=== PATIENT | female | born 1970 | race Caucasian/White ===

== ENCOUNTER 2016-09-13 15:27 | Emergency (ER) | payer BC ==
[~2016-09-13] VITALS: Ht 170.2 cm; Wt 120.2 kg
[~2016-09-13 15:27] MED LIST: HYDR1TAB PO
[2016-09-13] MEDS ORDERED: TRIA1TAB3 (15:49)
[2016-09-13] MEDS ORDERED: fentaNYL INJECTION 100 MCG/2 ML AMP IVP STA (16:03)
[2016-09-13] MEDS ORDERED: NS IV 1000 ML 1,000 ML IV ONE (16:03)
--- NOTE | 2016-09-13 16:03 | ED Abdominal Pain ---
General Chief Complaint: Abdominal/GI Problems Stated Complaint: SEVERE STOMACH PAIN Nursing Triage Note: WOKE UP THIS AM WITH MIDLINE ABD PAIN. Sepsis Screen: No Definite Risk Source of Information: Patient Exam Limitations: No Limitations History of Present Illness Time Seen By Provider: 15:56 Initial Comments Patient presents to ER by private conveyance with chief complaint of epigastric abdominal pain that does not radiate anywhere and started this morning when she woke up. His producing you nausea without any vomiting. She has loose stools but she is chronically having loose stools ever since her gallbladder was taken out years ago. She is not seeing any blood or black tarry stools and they are not watery. She has a history of kidney stones and has seen Dr. Kaufman in the past. She says does not feel like her kidney stones. She is not aware whether or not she has diverticulosis and has never had a colonoscopy. She also has had a vertical as well as her gallbladder surgery on her abdomen. She is not having any fevers chills sweats or rash. Allergies and Home Medications Allergies Coded Allergies: No Known Drug Allergies (Unverified , 06/19/11) Home Medications Omeprazole 40 Mg Capsule.dr, 40 MG PO HS for 7 Days, #7 Ref 0 Prescribed by: NAEEM ESCOBAR on 09/13/168 Ondansetron 4 Mg Tab.rapdis, 4 MG PO Q6H PRN for NAUSEA/VOMITING-1ST LINE, #14 Ref 0 Prescribed by: NAEEM ESCOBAR on 09/13/168 Triamterene/Hydrochlorothiazid 1 Each Tablet, #30 (Reported) Review of Systems Constitutional: see HPI, No chills, No fever, malaise, No weakness Respiratory: Denies Cough, Denies Shortness of Air Cardiovascular: Denies Chest Pain, Denies Edema Gastrointestinal: See HPI, Abdominal Pain, Denies Constipated (loose stools), Diarrhea, Nausea Genitourinary: Denies Burning, Denies Discharge Musculoskeletal: No back pain, No joint pain Skin: No pruritus, No rash Psychiatric/Neurological: Denies Headache, Denies Numbness Past Ekqdxgh-Oygoxd-Iulgqw Hx Patient Social History Alcohol Use: Denies Use Recreational Drug Use: No Smoking Status: Former Smoker Recent Foreign Travel: No Contact w/Someone Who Travel: No Recent Infectious Disease Expo: No Surgeries Surgeries: Gallbladder Respiratory Hx Respiratory Disorders: No Cardiovascular Hx Cardiac Disorders: No Neurological Hx Neurological Disorders: No Reproductive System Hx Reproductive Disorders: No Sexually Transmitted Disease: No Genitourinary Hx Genitourinary Disorders: Yes (KIDNEY STONES) Genitourinary Disorders: Kidney Stones Gastrointestinal Hx Gastrointestinal Disorders: No Musculoskeletal Hx Musculoskeletal Disorders: No Endocrine Hx Endocrine Disorders: No HEENT HX ENT Disorders: No Blood Transfusions Hx Blood Disorders: No Physical Exam Vital Signs VS - Last 72 Hours, by Label 09/13/16 09/13/16 15:33 18:36 Temp 98.0 Pulse 88 76 Resp 16 16 B/P (MAP) 148/82 Pulse Ox 98 Capillary Refill : Less Than 3 Seconds General Appearance: WD/WN, mild distress HEENT: PERRL/EOMI, pharynx normal Respiratory: lungs clear, normal breath sounds Cardiovascular: normal peripheral pulses, regular rate, rhythm, no edema Peripheral Pulses: 3+ Dorsalis Pedis (R), 3+ Left Dors-Pedis (L), 3+ Radial Pulses (R), 3+ Radial Pulses (L) Gastrointestinal: non tender, soft Extremities: non-tender, no pedal edema, no calf tenderness, normal capillary refill Back: normal inspection, no CVA tenderness Neurologic/Psychiatric: alert, normal mood/affect, oriented x 3 Skin: normal color, warm/dry Lymphatic: no adenopathy Focused Exam Lactic Acid Level Laboratory Tests Test 09/13/16 17:23 Lactic Acid Level 1.36 MMOL/L (0.50-2.00) Progress/Results/Core Measures Results/Orders Lab Results Laboratory Tests Test 09/13/16 15:33 09/13/16 16:40 09/13/16 17:23 Range/Units Urine Color YELLOW Urine Clarity CLEAR Urine pH 8 5-9 Urine Specific Ten Sleep 1.015 L 1.016-1.022 Urine Protein NEGATIVE NEGATIVE Urine Glucose (UA) NEGATIVE NEGATIVE Urine Ketones NEGATIVE NEGATIVE Urine Nitrite NEGATIVE NEGATIVE Urine Bilirubin NEGATIVE NEGATIVE Urine Urobilinogen NORMAL NORMAL MG/DL Urine Leukocyte Esterase NEGATIVE NEGATIVE Urine RBC (Auto) 3+ H NEGATIVE Urine RBC NONE /HPF Urine WBC 0-2 /HPF Urine Squamous Epithelial Cells 2-5 /HPF Urine Crystals NONE /LPF Urine Bacteria TRACE /HPF Urine Casts NONE /LPF Urine Mucus NEGATIVE /LPF Urine Culture Indicated NO Urine Test NEGATIVE NEGATIVE White Blood Count 14.7 H 4.3-11.0 10^3/uL Red Blood Count 5.19 4.35-5.85 10^6/uL Hemoglobin 14.7 11.5-16.0 G/DL Hematocrit 44 35-52 % Mean Corpuscular Volume 85 80-99 FL Mean Corpuscular Hemoglobin 28 25-34 PG Mean Corpuscular Hemoglobin Concent 33 32-36 G/DL Red Cell Distribution Width 13.9 10.0-14.5 % Platelet Count 325 130-400 10^3/uL Mean Platelet Volume 10.6 H 7.4-10.4 FL Neutrophils (%) (Auto) 81 H 42-75 % Lymphocytes (%) (Auto) 12 12-44 % Monocytes (%) (Auto) 6 0-12 % Eosinophils (%) (Auto) 2 0-10 % Basophils (%) (Auto) 0 0-10 % Neutrophils # (Auto) 11.9 H 1.8-7.8 X 10^3 Lymphocytes # (Auto) 1.7 1.0-4.0 X 10^3 Monocytes # (Auto) 0.8 0.0-1.0 X 10^3 Eosinophils # (Auto) 0.3 0.0-0.3 10^3/uL Basophils # (Auto) 0.1 0.0-0.1 10^3/uL Neutrophils % (Manual) 79 % Lymphocytes % (Manual) 16 % Monocytes % (Manual) 5 % Blood Morphology Comment NORMAL Sodium Level 140 135-145 MMOL/L Potassium Level 4.2 3.6-5.0 MMOL/L Chloride Level 103 98-107 MMOL/L Carbon Dioxide Level 23 21-32 MMOL/L Anion Gap 14 5-14 MMOL/L Blood Urea Nitrogen 13 7-18 MG/DL Creatinine 0.66 0.60-1.30 MG/DL Estimat Glomerular Filtration Rate > 60 BUN/Creatinine Ratio 20 Glucose Level 99 70-105 MG/DL Calcium Level 9.6 8.5-10.1 MG/DL Magnesium Level 2.3 1.8-2.4 MG/DL Total Bilirubin 0.5 0.1-1.0 MG/DL Aspartate Amino Transf (AST/SGOT) 16 5-34 U/L Alanine Aminotransferase (ALT/SGPT) 21 0-55 U/L Alkaline Phosphatase 103 40-136 U/L Troponin I < 0.30 <0.30 NG/ML Total Protein 7.6 6.4-8.2 GM/DL Albumin 4.1 3.2-4.5 GM/DL Lipase 15 8-78 U/L Lactic Acid Level 1.36 0.50-2.00 MMOL/L My Orders Orders - NAEEM ESCOBAR Ct Abdomen/Pelvis W (09/13/16 16:03) Cbc With Automated Diff (09/13/16 16:03) Comprehensive Metabolic Panel (09/13/16 16:03) Hcg,Qualitative Urine (09/13/16 16:03) Lactic Acid Analyzer (09/13/16 16:03) Lipase (09/13/16 16:03) Magnesium (09/13/16 16:03) Troponin I (09/13/16 16:03) Ua Culture If Indicated (09/13/16 16:03) Fentanyl Injection (Sublimaze Injection (09/13/16 16:03) Saline Lock/Iv-Start (09/13/16 16:03) Ns Iv 1000 Ml (Sodium Chloride 0.9%) (09/13/16 16:03) Ondansetron Injection (Zofran Injectio (09/13/16 16:15) Iohexol Injection (Omnipaque 350 Mg/Ml 1 (09/13/16 16:15) Ns (Ivpb) (Sodium Chloride 0.9% Ivpb Bag (09/13/16 16:15) Manual Differential (09/13/16 16:40) Famotidine Tablet (Pepcid Tablet) (09/13/16 18:15) Rx-Ondansetron Po (Rx-Zofran Po) (09/13/16 18:13) Medications Given in ED Current Medications Medications Dose Ordered Sig/Alaina Route Start Time Stop Time Status Last Admin Dose Admin Iohexol 100 ml ONCE ONCE IV 09/13/16 16:15 09/13/16 16:16 DC 09/13/16 16:50 100 ML Ondansetron HCl 4 mg ONCE ONCE IVP 09/13/16 16:15 09/13/16 16:16 DC 09/13/16 16:39 4 MG Sodium Chloride 100 ml ONCE ONCE IV 09/13/16 16:15 09/13/16 16:16 DC 09/13/16 16:50 80 ML Sodium Chloride 1,000 ml @ 0 mls/hr Q0M ONCE IV 09/13/16 16:03 09/13/16 16:07 DC 09/13/16 16:39 1,000 MLS/HR Vital Signs/I&O Vital Sign - Last 12Hours 09/13/16 09/13/16 15:33 18:36 Temp 98.0 Pulse 88 76 Resp 16 16 B/P (MAP) 148/82 Pulse Ox 98 Blood Pressure Mean: 104 Point of Care Testing Urine -Bedside: Negative Diagnostic Imaging Diagonstic Imaging: CT Plain Films/CT/US/NM/MRI: abdomen (abdomen pelvis with contrast) Comments [facility] [place], [place] NAME: GLORIA BANDA [facility] REC#: [id number] PT STATUS: REG ER : 1970 PHYSICIAN: NAEEM ESCOBAR MD ADMIT DATE: 09/13/16/ER Draft Date of Exam:09/13/16 CT ABDOMEN/PELVIS W INDICATION: Abdominal pain. EXAMINATION: CT of the abdomen and pelvis was obtained with IV contrast bolus. COMPARISON: 06/30/11. FINDINGS: Visualized portions of the lung bases are clear. There are no pleural fluid collections. There is no free intraperitoneal air. The liver shows no focal lesions. Patient has had prior cholecystectomy. The spleen, adrenals and pancreas are normal in appearance. The right kidney shows a cyst in the midpole but no hydronephrosis or mass. The left kidney shows a mixed density lesion containing fat in the midpole, compatible with angiomyolipoma. This measures about 3.6 cm, slightly larger compared to the prior study. There is no retroperitoneal mass or adenopathy. There is no ascites or abnormal fluid collection. Visualized bowel loops are unremarkable. There is a ventral hernia in the midline containing fat. IMPRESSION: Status post cholecystectomy. Benign-appearing cyst in the right kidney. 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 There is a nonocclusive stone in the right kidney. There is a ventral hernia in the midline containing fat. There is no sign of bowel obstruction or bowel wall thickening. Dictated on workstation # [id number] Dict: 09/13/16 1703 Trans: 09/13/16 1724 [facility] [id number] Interpreted by: FADI PHILIPPE MD Electronically signed by: Reviewed: Reviewed by Me Departure Impression Impression: Primary Impression: Nausea and vomiting Qualified Codes: R11.2 - Nausea with vomiting, unspecified Additional Impressions: Abdominal wall pain Gastroenteritis Disposition: 01 HOME, SELF-CARE Condition: Improved Departure-Patient Inst. Decision time for Depature: 18:15 Referrals: HELENE ARELLANO DO (PCP) Primary Care Physician Patient Instructions: Gastritis (DC) Add. Discharge Instructions: Please start with an all liquid diet tonight and if have any nausea take Zofran every 6 hours as needed and allow it to dissolve under your tongue. After you have nausea you should wait at least 3-4 hours before attempting to eat anything again. Make sure drinking plenty of fluids as this is more important and eating. Start with a liquid diet and advance yourself as tolerated to a more substantial diet. Avoid things that are greasy or spicy in nature. Take the omeprazole, one tablet at night as needed for the next week to help with your symptoms. If you're having pain you can take Tylenol or Advil as needed. If your symptoms are going for more than 5 days you should consider following up with your primary care physician. If you have new or worsening symptoms such as fever or intractable nausea and vomiting then you should return to the ER. All discharge instructions reviewed with patient and/or family. Voiced understanding. Scripts Ondansetron (Zofran Odt) 4 Mg Tab.rapdis 4 MG PO Q6H Y for NAUSEA/VOMITING-1ST LINE, #14 TAB 0 Refills Prov: NAEEM ESCOBAR 09/13/16 Omeprazole (Omeprazole) 40 Mg Capsule. 40 MG PO HS for 7 Days, #7 CAP 0 Refills Prov: NAEEM ESCOBAR 09/13/16 Copy Copies To 1: HELENE ARELLANO TITUS J Sep 13, 2016 16:03
[2016-09-13 16:11] LABS: BILIRUBIN,URINE NEGATIVE (NEGATIVE); KETONES,URINE NEGATIVE (NEGATIVE); LEUKOCYTE ESTERASE ,URINE NEGATIVE (NEGATIVE); NITRITE,URINE NEGATIVE (NEGATIVE); PH,URINE 8 (5-9); PROTEIN,URINE NEGATIVE (NEGATIVE); UROBILINOGEN,URINE NORMAL (NORMAL)
[2016-09-13] MEDS ORDERED: ONDANSETRON 4 MG/2 ML (SDV) Z0FRAN IVP ONE (16:15)
[2016-09-13] MEDS ORDERED: NS 100 ML (IVPB) BAG IV ONE (16:15)
[2016-09-13] MEDS ORDERED: IOHEXOL 350 MG/ML 100 ML (OMNIPAQUE 350) VIAL IV ONE (16:15)
[2016-09-13 16:19] LABS: WBC,URINE 0-2 /HPF
[2016-09-13 16:49] LABS: BASOPHILS # (AUTO) 0.1 10^3/uL (0.0-0.1); BASOPHILS % (AUTO) 0 % (0-10); EOSINOPHILS # (AUTO) 0.3 10^3/uL (0.0-0.3); EOSINOPHILS % (AUTO) 2 % (0-10); LYMPHOCYTES # (AUTO) 1.7 X 10^3 (1.0-4.0); LYMPHOCYTES % (AUTO) 12 % (12-44); MEAN CORPUSCULAR HEMOGLOBIN 28 PG (25-34); MEAN CORPUSCULAR HGB CONC 33 G/DL (32-36); MEAN CORPUSCULAR VOLUME 85 FL (80-99); MEAN PLATELET VOLUME 10.6 FL (7.4-10.4); MONOCYTES # (AUTO) 0.8 X 10^3 (0.0-1.0); MONOCYTES % (AUTO) 6 % (0-12); NEUTROPHILS # (AUTO) 11.9 X 10^3 (1.8-7.8); NEUTROPHILS % (AUTO) 81 % (42-75); PLATELET COUNT 325 10^3/uL (130-400); RED BLOOD COUNT 5.19 10^6/uL (4.35-5.85); RED CELL DISTRIBUTION WIDTH 13.9 % (10.0-14.5); WHITE BLOOD COUNT 14.7 10^3/uL (4.3-11.0)
[2016-09-13 17:08] LABS: LYMPHOCYTES % (MANUAL) 16 %; NEUTROPHILS % (MANUAL) 79 %
[2016-09-13 17:17] LABS: ALANINE AMINOTRANSFERASE 21 U/L (0-55); ALBUMIN 4.1 GM/DL (3.2-4.5); ANION GAP 14 MMOL/L (5-14); ASPARTATE AMINO TRANSFERASE 16 U/L (5-34); BILIRUBIN,TOTAL 0.5 MG/DL (0.1-1.0); BLOOD UREA NITROGEN 13 MG/DL (7-18); BUN/CREATININE RATIO 20; CALCIUM 9.6 MG/DL (8.5-10.1); CARBON DIOXIDE 23 MMOL/L (21-32); CHLORIDE 103 MMOL/L (98-107); CREATININE SERUM 0.66 MG/DL (0.60-1.30); GFR ESTIMATED > 60; GLUCOSE 99 MG/DL (70-105); LIPASE 15 U/L (8-78); MAGNESIUM 2.3 MG/DL (1.8-2.4); SODIUM 140 MMOL/L (135-145); TOTAL PROTEIN 7.6 GM/DL (6.4-8.2)
[2016-09-13 17:23] LABS: TROPONIN I < 0.30 NG/ML (<0.30)
--- NOTE | 2016-09-13 17:24 | Diagnostic Imaging Report ---
INDICATION: Abdominal pain. EXAMINATION: CT of the abdomen and pelvis was obtained with IV contrast bolus. COMPARISON: 06/30/11. FINDINGS: Visualized portions of the lung bases are clear. There are no pleural fluid collections. There is no free intraperitoneal air. The liver shows no focal lesions. Patient has had prior cholecystectomy. The spleen, adrenals and pancreas are normal in appearance. The right kidney shows a cyst in the midpole but no hydronephrosis or mass. The left kidney shows a mixed density lesion containing fat in the midpole, compatible with angiomyolipoma. This measures about 3.6 cm, slightly larger compared to the prior study. There is no retroperitoneal mass or adenopathy. There is no ascites or abnormal fluid collection. Visualized bowel loops are unremarkable. There is a ventral hernia in the midline containing fat. IMPRESSION: Status post cholecystectomy. Benign-appearing cyst in the right kidney. 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 There is a nonocclusive stone in the right kidney. There is a ventral hernia in the midline containing fat. There is no sign of bowel obstruction or bowel wall thickening. Dictated by: Dictated on workstation # [id number]
[2016-09-13 17:29] LABS: POTASSIUM 4.2 MMOL/L (3.6-5.0)
[2016-09-13] MEDS ORDERED: RX-ONDANSETRON 4 MG ODT (ZOFRAN) PPK #4 PO STA (18:13)
[2016-09-13] MEDS ORDERED: FAMOTIDINE 20 MG (PEPCID) TABLET PO ONE (18:15)
[2016-09-13] MEDS ORDERED: ONDA4TAB8 PO (18:18)
[2016-09-13] MEDS ORDERED: OMEP40CA36 PO (18:18)
[2016-09-13 18:36] VITALS: BP 127/77
== END 2016-09-13 18:36 | disposition home or self-care (01) ==
LOC: EDUNIT# 15:27 → ER 15:29
DX: K52.9 Noninfective gastroenteritis and colitis, unspecified (principal); Z87.59 Personal history of other complications of pregnancy, childbirth and the puerperium; Z87.891 Personal history of nicotine dependence; Z87.442 Personal history of urinary calculi
CPT/HCPCS: 36415; 74177; 80053; 81000; 83605; 83690; 83735; 84484; 84703; 85007; 85027; 96361; 96374; 96375

== ENCOUNTER → 2017-01-29 | Outpatient (CLI) | payer BC ==
[~2017-01-29] MED LIST changes: +OMEP40CA36 PO; +ONDA4TAB8 PO; +TRIA1TAB3
--- NOTE | 2017-01-29 12:26 | Diagnostic Imaging Report ---
PROCEDURE: MRI right joint lower extremity without contrast. TECHNIQUE: Multiplanar, multisequence non contrast-enhanced MRI of the right lower extremity was accomplished. INDICATION: Right knee pain. Please note that the dedicated knee coil could not be used due to the large patient body habitus which decreases resolution on the images obtained. FINDINGS: There is a moderate joint effusion. There is bone marrow edema along the medial aspect of the medial femoral condyle which could relate to a mild contusion. The extensor mechanism is intact. The PCL is intact. The ACL demonstrates thickening of its fibers which may relate to old injury. There is no complete disruption of the fibers seen to suggest a full-thickness tear. The lateral meniscus demonstrates no definite tear. The medial meniscus demonstrates a complex tear involving the posterior root extending to the posterior horn and body of the meniscus. The MCL and the lateral collateral ligament complex appear generally preserved. The cartilage demonstrates 75% thinning in the lateral facet of the patella with associated reactive mild subchondral edema. The rest of the patellar cartilage demonstrates mild to moderate thinning. There is mild thinning of the cartilage in the medial compartment and intact appearance of the cartilage in the lateral compartment. There is no Sebastian's cyst. IMPRESSION: 1. There is a complex tear involving the posterior root of the medial meniscus and extending to the posterior horn and body segments. 2. Thickening and increased signal in the ACL is likely secondary to old injury. 3. Osteoarthritis changes most prominent in the patellofemoral compartment. Dictated by: Dictated on workstation # [id number]
== END ==
LOC: RAD 10:45
PROVIDERS: ATTEND Orthopaedic Surgery
DX: S83.231A Complex tear of medial meniscus, current injury, right knee, initial encounter (principal); M17.11 Unilateral primary osteoarthritis, right knee
CPT/HCPCS: 73721

== ENCOUNTER → 2019-08-11 | Outpatient (CLI) | payer BC ==
[~2019-08-11] MED LIST changes: +OMEP40CA27 PO; -OMEP40CA36 PO
[2019-08-11 09:59] LABS: BILIRUBIN,URINE NEGATIVE (NEGATIVE); CLARITY,URINE CLEAR; COLOR,URINE YELLOW; GLUCOSE, URINE (UA) NEGATIVE (NEGATIVE); KETONES,URINE NEGATIVE (NEGATIVE); LEUKOCYTE ESTERASE ,URINE 1+ (NEGATIVE); NITRITE,URINE NEGATIVE (NEGATIVE); PH,URINE 5.5 (5-9); PROTEIN,URINE NEGATIVE (NEGATIVE)
[2019-08-11 10:06] LABS: BACTERIA,URINE TRACE /HPF
== END ==
LOC: LAB 09:40
PROVIDERS: ATTEND Family Medicine
DX: N39.0 Urinary tract infection, site not specified (principal); M54.9 Dorsalgia, unspecified
CPT/HCPCS: 81000; 87088

== ENCOUNTER 2019-08-19 01:22 | Emergency (ER) | payer BC ==
[~2019-08-19] VITALS: Ht 167 cm; Wt 101.0 kg
--- OUTSIDE RECORDS SUMMARY | 2019-08-19 01:29 | XMS REPORT ---
Author Author [employer] [facility] Address [address] [place] [address] Care Team Providers Care Emergency Room Physician Name Role Phone HELENE ARELLANO Unavailable Allergies Normalized Allergy Reported Date of Reaction(s) Care Provider Facility Allergy Type classification allergen Allergy Onset DA (2 Unclassified No Known Drug 06-19-2011 - no information NAEEM LUZ Not Available sources.) Allergies (18707) Medications No Information Problems Active Problems Problem Normalized Date Last Normalized Normalized Provider Fa cility Classification Problem(s) Recorded Problem Problem Sta tus Duration Osteoarthritis Unilateral Chronic Active no name no inf ormation (2 sources.) primary osteoarthritis , right knee Past or Other Problems Problem Normalized Date Last Normalized Normalized Provider Fa cility Classification Problem(s) Recorded Problem Problem Sta tus Duration Joint Complex tear Episodic Completed no name no inform ation disorders and of medial dislocations; meniscus, trauma-related current (2 sources.) injury, right knee, initial encounter Screening and Personal Episodic Completed NAEEM LUZ Not Av ailable history of history of (99482) mental health nicotine and substance dependence abuse codes (1 source.) Residual Personal Episodic Completed NAEEM LUZ Not Availa ble codes; history of (19125) unclassified other (1 source.) complications of , childbirth and the puerperium Calculus of Personal Episodic Completed NAEEM LUZ Not Avai lable urinary tract history of (18243) (1 source.) urinary calculi Procedures The data below is from unstructured sourcesNo known history of procedures.No known history of procedures.No known history of procedures. Immunizations The data below is from unstructured sourcesNo immunization records.No immunization records.No immunization records. Results No Information Vital Signs The data below is from unstructured sources Vital Response Date/Time Temperature (Fahrenheit) 98.0 degree s F (97.6 - 99.5) 09/13/2016 3:33pm Temperature (Calculated Celsius) 36. 50232 degrees C (36.4 - 37.5) 09/13/2016 3:33pm Temperature Source Tympanic 09/13/2016 3:33pm Pulse Rate (adult) 88 bpm (60 - 90) 09/13/2016 3:33pm Respiratory Rate 16 bpm (12 - 24) 09/13/2016 3:33pm Blood Pressure 148/82 mm Hg 09/13/2016 3:33pm Blood Pressure Mean 104 mm Hg 09/13/2016 3:33pm Pain Numeric Pain Scale 7 4:39pm Height (Feet) 5 feet 3:33pm Height (Inches) 7.00 inches 09/13/2016 3:33pm Height (Calculated Centimeters) 170. 411120 cm 09/13/2016 3:33pm Height Method Stated 3:33pm Weight (Pounds) 265 pounds 09/13/2016 3:33pm Weight (Calculated Kilograms) 120.20 1979 kilograms 09/13/2016 3:33pm Weight Method Stated 3:33pm Capillary Refill Capillary Refill Less Than 3 Seconds 09/13/2016 3:33pm Height 5 ft 7 in 017 3:33pm Weight 265 lb 09/13/2016 3:33pm Body Mass Index 41.5 kg/m^2 09/13/2016 3:33pm Interventions No Information Plan of Treatment The data below is from unstructured sources Prescriptions See Medication Section Discharge Date 09/13/16 6:36pm Disposition 01 HOME, SELF-CARE Condition at Discharge Improved Instructions/Education Provided Jacinta PRADO) Prescriptions See Medication Section Referrals HELENE ARELLANO DO Order Date: Primary Care Physician Address: [address] [place] [phone] Additional Instructions/Education Pl ease start with an all liquid diet tonight and if have any nausea take Zofran every 6 hours as needed and allow it to dissolve under your tongue. After you have nausea you should wait at least 3-4 hours before attempting to eat anything again. Make sure drinking plenty of fluids as this is more important and eating. Start with a liquid diet and advance yourself as tolerated to a more substantial diet. Avoid things that are greasy or spicy in nature. Take the omeprazole, one tablet at night as needed for the next week to help with your symptoms. If you're having pain you can take Tylenol or Advil as needed. If your symptoms are going for more than 5 days you should consider following up with your primary care physician. If you have new or worsening symptoms such as fever or intractable nausea and vomiting then you should return to the ER. All discharge instructions reviewed with patient and/or family. Voiced understanding. Discharge Date 09/13/16 6:36pm Disposition 01 HOME, SELF-CARE Condition at Discharge Improved Instructions/Education Provided Jacinta nico PRADO) Prescriptions See Medication Section Referrals HELENE ARELLANO DO Order Date: Primary Care Physician Address: [address] [place] [phone] Additional Instructions/Education Pl ease start with an all liquid diet tonight and if have any nausea take Zofran every 6 hours as needed and allow it to dissolve under your tongue. After you have nausea you should wait at least 3-4 hours before attempting to eat anything again. Make sure drinking plenty of fluids as this is more important and eating. Start with a liquid diet and advance yourself as tolerated to a more substantial diet. Avoid things that are greasy or spicy in nature. Take the omeprazole, one tablet at night as needed for the next week to help with your symptoms. If you're having pain you can take Tylenol or Advil as needed. If your symptoms are going for more than 5 days you should consider following up with your primary care physician. If you have new or worsening symptoms such as fever or intractable nausea and vomiting then you should return to the ER. All discharge instructions reviewed with patient and/or family. Voiced understanding. Goals No Information Social History No Information Functional Status The data below is from unstructured sourcesNo functional status results.No functional status results.No functional status results.No functional status information available.No functional status information available. Mental Status No Information Encounters Encounter Normalized Encounter Encounter Diagnosis Care Provi felipe Organization Date Type 09-26-2017 Emergency department no information no name no organization name patient visit NEGATED Patient encounter no information no name no or ganization name 01-29-2017 Medical Equipment No Information Payers No Information Advance Directives Directive Response Recor ded Date/Time Advance Directives No 1:45pm Health Care Power of Office Nurse Practitioner No 07/03/11 1:45pm Organ Donor No 07/03/11 1:45pm Discharge Instructions No hospital discharge instructions.No hospital discharge instructions.No hospital discharge instruction information available. Additional Source Comments This clinical document has been generated using [employer] software that has been certified by the Office of the National Coordinator for Health Information Technology (ONC 15.99.04.3023.Diam.[id number]) and the National Committee for [employer] (NCQA, as an eMeasure certified technology). FOR RECORDS PERTAINING TO PATIENTS WHO ARE OR HAVE BEEN ENROLLED IN A CHEMICAL D EPENDENCY/SUBSTANCE ABUSE PROGRAM, SOME INFORMATION MAY BE OMITTED. This clinica l summary was aggregated from multiple sources. Caution should be exercised in using it in the provision of clinical care. This summary normalizes information from multiple sources, and as a consequence, information in this document may ma terially change the coding, format and clinical context of patient data. In chika tion, data may be omitted in some cases. CLINICAL DECISIONS SHOULD BE BASED ON T HE PRIMARY CLINICAL RECORDS. [employer] provides no warranty or guara ntee of the accuracy or completeness of information in this document.The followi ng information is based on time limited clinical information
--- OUTSIDE RECORDS SUMMARY | 2019-08-19 01:30 | XMS REPORT | Continuity of Care Document ---
Demographics Preferred Language Unknown Marital Status Unknown Jehovah'S Witness Affiliation Unknown Race Unknown Ethnic Group Unknown Author Organization Unknown Address Unknown Phone Unavailable Allergies Active Description Code Type Severity Reaction Onset Reported/Identified Relationship to Patient Clinical Status Yes No Known Drug Allergies [id number] Drug Allergy Unknown N/A 06/19/2011 Medications There is no data. Problems Date Dx Coded Attending Type Code Diagnosis Diagnosed By 06/19/2011 Ot 592.1 CALC ULUS OF URETER 06/19/2011 Ot 789.09 ABD OMINAL PAIN, OTHER SPECIFIED SITE 07/03/2011 Ot 592.1 10/15/2011 Ot 592.0 2012 461.9 SINU SITIS ACUTE 06/16/2014 Ot 592.0 06/16/2014 Ot 593.9 06/16/2014 Ot 592.0 06/16/2014 Ot V72.63 06/16/2014 Ot V74.8 06/16/2014 Ot 592.1 06/16/2014 Ot V67.09 06/16/2014 Ot 592.0 08/11/2014 Ot 592.0 08/11/2014 Ot 593.9 08/11/2014 Ot 592.0 08/11/2014 Ot V72.63 08/11/2014 Ot V74.8 08/11/2014 Ot 592.1 08/11/2014 Ot V67.09 08/11/2014 Ot 592.0 08/11/2014 MANUEL BREAUX, BRITTANY العراقي Ot 592.9 09/14/2014 BRITTANY JACKSON MD Ot 592.9 URINARY CALCULUS NOS 06/14/2015 BRITTANY JACKSON MD Ot N20.9 URINARY CALCULUS, UNSPECIFIED 06/20/2015 BRITTANY JACKSON MD Ot N20.9 URINARY CALCULUS, UNSPECIFIED 09/13/2016 LUZ BREAUX, NAEEM Alberto Ot K52. 9 NONINFECTIVE GASTROENTERITIS AND COLITIS 09/13/2016 LUZ BREAUX, NAEEM Alberto Ot R10. 13 EPIGASTRIC PAIN 09/13/2016 LUZ BREAUX, NAEEM Alberot Ot Z87.442 PERSONAL HISTORY OF URINARY CALCULI 09/13/2016 LUZ BREAUX, NAEEM Alberto Ot Z87. 59 PERSONAL HISTORY OF COMP OF PREG, CHLDBR 09/13/2016 NAEEM ESCOBAR MD Ot Z87.891 PERSONAL HISTORY OF NICOTINE DEPENDENCE 09/13/2016 Ot 592.0 CALC ULUS OF KIDNEY 09/13/2016 Ot 593.9 CAROLINA L URETERAL DIS NOS 09/13/2016 Ot 592.0 CALC ULUS OF KIDNEY 09/13/2016 Ot V72.63 PRE -PROCEDURAL LABORATORY EXAMINATION 09/13/2016 Ot V74.8 SCRE EN-BACTERIAL DIS NEC 03/05/2017 LARRY DO, FADI Munira Ot M17.11 UNILATERAL PRIMARY OSTEOARTHRITIS, RIGHT 03/05/2017 LARRY DO, FADI Muniar Ot S83.231A COMPLEX TEAR OF MEDIAL MENSC, CURRENT IN 03/19/2017 LARRY DO, FADI Lombardo Ot M17.11 UNILATERAL PRIMARY OSTEOARTHRITIS, RIGHT 03/19/2017 LARRY DO, FADI Lombardo Ot S83.231A COMPLEX TEAR OF MEDIAL MENSC, CURRENT IN 08/11/2019 BRITTANY JACKSON MD Ot 592.9 URINARY CALCULUS NOS 08/11/2019 LARRY DO, FADI Munira Ot M17.11 UNILATERAL PRIMARY OSTEOARTHRITIS, RIGHT 08/11/2019 LARRY DO, FADI Munira Ot S83.231A COMPLEX TEAR OF MEDIAL MENSC, CURRENT IN 08/12/2019 HELENE ARELLANO DO Ot M54.9 DORSALGIA, UNSPECIFIED 08/12/2019 HELENE ARELLANO DO Ot N39.0 URINARY TRACT INFECTION, SITE NOT SPECIF Procedures There is no data. Results Test Result Range Complete urinalysis with reflex to cultu re - 08/11/19 09:30 Urine color determination YELLOW NRG Urine clarity determination CLEAR NR G Urine pH measurement by test strip 5.5 5-9 Specific gravity of urine by test strip 1.025 1.016-1.022 Urine protein assay by test strip, semi-quantitative NEGATIVE NEGATIVE Urine glucose detection by automated test strip NE GATIVE NEGATIVE Erythrocytes detection in urine sediment by light micr oscopy NEGATIVE NEGATIVE Urine ketones detection by automated test strip NE GATIVE NEGATIVE Urine nitrite detection by test strip NEGATIVE NEGATIVE Urine total bilirubin detection by test strip NEGA TIVE NEGATIVE Urine urobilinogen measurement by automated test strip (mass/volume) 0.2 mg/dL < = 1.0 Urine leukocyte esterase detection by dipstick 1+ NEGATIVE Automated urine sediment erythrocyte cou nt by microscopy (number/high power field) NONE NRG Automated urine sediment leukocyte count by microscopy (number/high power field) [HPF] NRG Bacteria detection in urine sediment by light microsco py TRACE NRG Squamous epithelial cells detection in u rine sediment by light microscopy 2-5 NRG Crystals detection in urine sediment by light microsco py NONE NRG Casts detection in urine sediment by light microscopy NONE NRG Mucus detection in urine sediment by light microscopy NEGATIVE NRG Complete urinalysis with reflex to culture YES NRG Bacterial urine culture - 08/11/19 09:30 Bacterial urine culture [id number] NRG COLONY COUNT >100,000/ML NRG SUSCEPTIBILITY CONSISTANT WITH URETHRAL-VAGINAL NRG MRSA SCREEN HAILEY. NRG RAPID ID NO FURTHER TESTING NRG Encounters ACCT No. Visit Date/Time Discharge Status Pt. Type Provider Facility Loc./Unit Complaint [id number] 2012 09:30:00 2012 23:59: 59 CLS Outpatient [id number] 08/11/2019 09:40:00 020 23:59:59 CLS Outpatient GELJULIANO HELENE [facility] LAB BACK PAIN,UTI [id number] 01/29/2017 10:45:00 017 23:59:59 CLS Outpatient FADI JUAREZ DO [facility] RAD IMM RT KNEE [id number] 09/13/2016 15:29:00 017 23:59:59 CLS Emergency NAEEM ESCOBAR MD [facility] ER SEVERE STOMACH PAIN [id number] 06/18/2015 15:48:00 016 15:07:00 DIS Outpatient BRITTANY JACKSON MD [facility] LAB STONE [id number] 09/15/2014 00:10:00 015 23:59:59 CLS Preadmit BRITTANY JACKSON MD, V [facility] RAD STONE [id number] 06/16/2014 09:42:00 015 00:01:00 DIS Outpatient BRITTANY JACKSON MD [facility] RAD STONE [id number] 10/16/2011 00:00:00 Document Registration [id number] 07/20/2011 10:00:00 Document Registration [id number] 07/17/2011 13:30:00 Document Registration [id number] 07/03/2011 05:34:00 Document Registration [id number] 07/02/2011 14:43:00 Document Registration [id number] 06/30/2011 08:20:00 Document Registration [id number] 06/19/2011 07:39:00 Document Registration
[2019-08-19] MEDS ORDERED: KETOROLAC 30 MG/ML VIAL IVP STA (01:44)
[2019-08-19] MEDS ORDERED: LACTATED RINGERS 1,000 ML IV ONE (01:44)
[2019-08-19] MEDS ORDERED: ONDANSETRON 4 MG/2 ML (SDV) Z0FRAN IVP ONE (01:45)
--- NOTE | 2019-08-19 01:53 | ED Back Pain ---
General Chief Complaint: Back Problems Stated Complaint: ABD PAIN Nursing Triage Note: Pt ambulates to Rm 5 with c/o flank pain that radiates to abd x 2 wks but more severe tonight. PT was on ABx for possible UTI then prescribed naproxen and flexiril for back pain without relief. Pt states she has Hx of kidney stones and pain feels similar. Nursing Sepsis Screen: No Definite Risk Source of Information: Patient History of Present Illness Date Seen by Provider: Aug 19, 2019 Time Seen by Provider: 01:35 Initial Comments PT ARRIVES VIA POV FROM HOME C/O BILATERAL FLANK PAIN X 3 WEEKS PAIN RADIATES AROUND TO MID ABDOMEN ON BOTH SIDES PAIN HAS BEEN WORSE ALL DAY TODAY + NAUSEA, NO VOMITING NO DIARRHEA OR CONSTIPATION, HAD NORMAL BM TODAY NO URINARY SYMPTOMS NO FEVER NOTHING WORSENS OR IMPROVES PAIN SAW DR ARELLANO 2 WEEKS AGO FOR THIS PROBLEM AND WAS DX WITH UTI AND GIVEN RX FOR AN UNKNOWN ANTIBIOTIC--PT STATES THERE WERE RED CELLS AND WHITE CELLS IN HER URINE. ON REVIEW OF MED RECONCILIATION, RX FOR AMOXIL 500 MG WAS PRESCRIBED 08/05/19 SAW HIM IN FOLLOW UP, AFTER NO IMPROVEMENT AND URINE TEST LOOKED THE SAME, CULTURE WAS DONE, AND PT STATES THAT "IT DIDN'T LOOK LIKE AN INFECTION" SAW HIM AGAIN ON Thursday08/16/19 FOR FOLLOW UP AND CONTINUED PAIN, AND WAS PRESCRIBED NAPROXEN AND FLEXERIL--STATES SHE TOOK THEM THURSDAY AND PART OF THURSDAY, BUT FELT WORSE, SO SHE QUIT TAKING THEM HAS NOT TAKEN ANYTHING ELSE FOR PAIN STATES SHE HAS HAD KIDNEY STONES IN THE PAST AND THIS FEELS THE SAME HAS HAD LITHOTRIPSY X 1, PASSED OTHER STONES LMP 6 MONTHS AGO, NO CONTROL. STATES SHE IS GOING THROUGH [facility] NO KNOWN SICK CONTACTS OR EXPOSURE TO COVID-19 Other Comments PCP: DR. ARELLANO UROLOGIST: DR. JACKSON Allergies and Home Medications Allergies Coded Allergies: No Known Drug Allergies (Unverified , 06/19/11) Home Medications Cefdinir 300 Mg Capsule, 300 MG PO BID Prescribed by: CHARLIE JOHNS on 08/19/19315 Ketorolac Tromethamine 10 Mg Tablet, 10 MG PO Q6H Prescribed by: CHARLIE JOHNS on 08/19/19315 Omeprazole 40 Mg Capsule.dr, 40 MG PO HS Prescribed by: NAEEM ESCOBAR on 09/13/161817 Ondansetron 4 Mg Tab.rapdis, 4 MG PO Q6H PRN for NAUSEA/VOMITING-1ST LINE Prescribed by: NAEEM ESCOBAR on 09/13/161817 Ondansetron 4 Mg Tab.rapdis, 4 MG PO Q4H Prescribed by: CHARLIE JOHNS on 08/19/19 0316 Patient Home Medication List Home Medication List Reviewed: Yes Review of Systems Constitutional: no symptoms reported; No chills, No diaphoresis, No fever EENTM: no symptoms reported Respiratory: no symptoms reported Cardiovascular: no symptoms reported Gastrointestinal: see HPI, abdominal pain; No constipation; nausea; No vomiting Genitourinary: see HPI, other (BILATERAL FLANK PAIN ) Control/STD Prophylaxis: None Musculoskeletal: see HPI, back pain Skin: no symptoms reported Psychiatric/Neurological: No Symptoms Reported Past Pqgrjaz-Xomjoe-Fdxjgu Hx Past Med/Social Hx: Reviewed and Corrections made Patient Social History Recent Foreign Travel: No Contact w/Someone Who Travel: No Recent Infectious Disease Expo: No Past Medical History Surgeries: Yes ( X 1;LITHOTRIPSY X 1;R KNEE SCOPE/MENISCUS TEAR) Section, Gallbladder, Orthopedic, Renal Respiratory: No Cardiac: Yes Hypertension Neurological: No Reproductive Disorders: No 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 oz. 120.698650xj; 36.00 BMI Method:Stated General Appearance: No Apparent Distress, WD/WN, Obese, Other (MOVES WITHOUT DIFFICULTY. ) Cardiovascular: Regular Rate, Rhythm, No Edema, No Murmur, Normal Peripheral Pulses Respiratory: Normal Breath Sounds, No Accessory Muscle Use, No Respiratory Dis tress Gastrointestinal: Normal Bowel Sounds, Soft; No Distended, No Guarding, No Rebound; Tenderness (BILATERAL FLANK AND DIFFUSE MID AND LOWER ABDOMEN TENDERNESS. ) Extremity: Normal Inspection Neurologic/Psychiatric: Alert, Oriented x3, No Motor/Sensory Deficits, Normal Mood/Affect, cellar pumper II-XII Norm as Tested Skin: Normal Color, Warm/Dry; No Rash Progress/Results/Core Measures Results/Orders Lab Results Laboratory Tests Test 08/19/19 01:46 08/19/19 02:00 Range/Units Urine Color YELLOW Urine Clarity CLOUDY Urine pH 6.0 5-9 Urine Specific [place] 1.025 H 1.016-1.022 Urine Protein NEGATIVE NEGATIVE Urine Glucose (UA) NEGATIVE NEGATIVE Urine Ketones NEGATIVE NEGATIVE Urine Nitrite NEGATIVE NEGATIVE Urine Bilirubin NEGATIVE NEGATIVE Urine Urobilinogen 0.2 < = 1.0 MG/DL Urine Leukocyte Esterase 2+ H NEGATIVE Urine RBC (Auto) NEGATIVE NEGATIVE Urine RBC NONE /HPF Urine WBC 50-100 H /HPF Urine Squamous Epithelial Cells 5-10 /HPF Urine Crystals NONE /LPF Urine Bacteria TRACE /HPF Urine Casts NONE /LPF Urine Mucus NEGATIVE /LPF Urine Yeast FEW H /HPF Urine Culture Indicated NO White Blood Count 10.9 4.3-11.0 10^3/uL Red Blood Count 4.76 4.35-5.85 10^6/uL Hemoglobin 13.7 11.5-16.0 G/DL Hematocrit 41 35-52 % Mean Corpuscular Volume 87 80-99 FL Mean Corpuscular Hemoglobin 29 25-34 PG Mean Corpuscular Hemoglobin Concent 33 32-36 G/DL Red Cell Distribution Width 14.3 10.0-14.5 % Platelet Count 257 130-400 10^3/uL Mean Platelet Volume 10.3 7.4-10.4 FL Neutrophils (%) (Auto) 69 42-75 % Lymphocytes (%) (Auto) 19 12-44 % Monocytes (%) (Auto) 9 0-12 % Eosinophils (%) (Auto) 2 0-10 % Basophils (%) (Auto) 0 0-10 % Neutrophils # (Auto) 7.6 1.8-7.8 X 10^3 Lymphocytes # (Auto) 2.1 1.0-4.0 X 10^3 Monocytes # (Auto) 1.0 0.0-1.0 X 10^3 Eosinophils # (Auto) 0.2 0.0-0.3 10^3/uL Basophils # (Auto) 0.0 0.0-0.1 10^3/uL Sodium Level 139 135-145 MMOL/L Potassium Level 4.0 3.6-5.0 MMOL/L Chloride Level 107 98-107 MMOL/L Carbon Dioxide Level 21 21-32 MMOL/L Anion Gap 11 5-14 MMOL/L Blood Urea Nitrogen 14 7-18 MG/DL Creatinine 0.69 0.60-1.30 MG/DL Estimat Glomerular Filtration Rate > 60 BUN/Creatinine Ratio 20 Glucose Level 121 H 70-105 MG/DL Calcium Level 9.6 8.5-10.1 MG/DL Corrected Calcium 9.6 8.5-10.1 MG/DL Total Bilirubin 0.5 0.1-1.0 MG/DL Aspartate Amino Transf (AST/SGOT) 15 5-34 U/L Alanine Aminotransferase (ALT/SGPT) 24 0-55 U/L Alkaline Phosphatase 111 40-136 U/L Total Protein 7.4 6.4-8.2 GM/DL Albumin 4.0 3.2-4.5 GM/DL Amylase Level 33 25-125 U/L Lipase 29 8-78 U/L My Orders Orders - CHARLIE JOHNS DO Ed Iv/Invasive Line Start (08/19/19 01:44) Urine Bedside (08/19/19 01:44) Ct Abd/Pelvis Wo(Kidney Stone) (08/19/19 01:44) Abdomen, Flat & Upright/Decub (08/19/19 01:44) Amylase (08/19/19 01:44) Cbc With Automated Diff (08/19/19 01:44) Comprehensive Metabolic Panel (08/19/19 01:44) Lipase (08/19/19 01:44) Ua Culture If Indicated (08/19/19 01:44) Ed Iv/Invasive Line Start (08/19/19 01:44) Lactated Ringers (Lr 1000 Ml Iv Solution (08/19/19 01:44) Ketorolac Injection (Toradol Injection) (08/19/19 01:44) Ondansetron Injection (Zofran Injectio (08/19/19 01:45) Ceftriaxone For Iv Use (Rocephin For I (08/19/19 02:30) Urine Culture (08/19/19 02:55) Medications Given in ED Current Medications Medications Dose Ordered Sig/Alaina Route Start Time Stop Time Status Last Admin Dose Admin Ceftriaxone Sodium 1000 mg/ Sterile Water 10 ml @ 200 mls/hr ONCE ONCE IV 08/19/19 02:30 08/19/19 02:32 DC 08/19/19 02:39 200 MLS/HR Lactated Ringer's 1,000 ml @ 0 mls/hr Q0M ONCE IV 08/19/19 01:44 08/19/19 01:46 DC 08/19/19 02:08 0 MLS/HR Ondansetron HCl 4 mg ONCE ONCE IVP 08/19/19 01:45 08/19/19 01:46 DC 08/19/19 02:08 4 MG Vital Signs/I&O 08/19/19 01:33 Temp 36.7 Pulse 89 Resp 18 B/P (MAP) 150/97 (114) Pulse Ox 98 O2 Delivery Room Air 2 Blood Pressure Mean: 114 Progress Progress Note : Progress Note UNEVENTFUL ER STAY SYMPTOMS RESOLVED WITH TORADOL AND ZOFRAN NO ABDOMINAL OR FLANK TENDERNESS AT DISMISSAL Diagnostic Imaging Comments ABDOMEN XRAYS--NO ACUTE PROCESS, PENDING RADIOLOGIST REVIEW CT ABDOMEN/PELVIS--5.4 MM NONOBSTRUCTING RIGHT INTRARENAL STONE. NO URETERAL STONES OR OBSTRUCTION. 2 CM RIGHT RENAL CYST. 3 X 3.6. 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 NO ACUTE PROCESS--PER [facility] VIA FAX AT [id number] Reviewed: Reviewed by Me Departure Impression Primary Impression: UTI (urinary tract infection) Disposition: HOME, SELF-CARE Condition: Improved Departure-Patient Inst. Referrals: HELENE ARELLANO DO (PCP/Family) Primary Care Physician Patient Instructions: Urinary Tract Infection, Adult (DC) Add. Discharge Instructions: LOTS OF CLEAR LIQUIDS CONTINUE FLEXERIL NEEDED FOR BACK PAIN / MUSCLE SPASMS FOLLOW UP WITH DR ARELLANO ON THURSDAY SCHEDULED All discharge instructions reviewed with patient and/or family. Voiced understanding. Scripts Ondansetron (Ondansetron Odt) 4 Mg Tab.rapdis 4 MG PO Q4H for Nausea/Vomiting, #10 TAB Prov: CHARLIE JOHNS DO 08/19/19 Ketorolac Tromethamine (Ketorolac Tromethamine) 10 Mg Tablet 10 MG PO Q6H for Pain, #15 TAB Prov: CHARLIE JOHNS DO 08/19/19 Cefdinir (Cefdinir) 300 Mg Capsule 300 MG PO BID, #20 CAP Prov: CHARLIE JOHNS DO 08/19/19 CHARLIE JOHNS DO Aug 19, 2019 01:53
[2019-08-19 01:55] LABS: BILIRUBIN,URINE NEGATIVE (NEGATIVE); CLARITY,URINE CLOUDY; COLOR,URINE YELLOW; GLUCOSE, URINE (UA) NEGATIVE (NEGATIVE); KETONES,URINE NEGATIVE (NEGATIVE); LEUKOCYTE ESTERASE ,URINE 2+ (NEGATIVE); NITRITE,URINE NEGATIVE (NEGATIVE); PROTEIN,URINE NEGATIVE (NEGATIVE)
[2019-08-19 02:07] LABS: BACTERIA,URINE TRACE /HPF; WBC,URINE 50-100 /HPF; YEAST,URINE FEW /HPF
[2019-08-19 02:12] LABS: BASOPHILS % (AUTO) 0 % (0-10); EOSINOPHILS # (AUTO) 0.2 10^3/uL (0.0-0.3); EOSINOPHILS % (AUTO) 2 % (0-10); HEMATOCRIT 41 % (35-52); HEMOGLOBIN 13.7 G/DL (11.5-16.0); LYMPHOCYTES # (AUTO) 2.1 X 10^3 (1.0-4.0); LYMPHOCYTES % (AUTO) 19 % (12-44); MEAN CORPUSCULAR HEMOGLOBIN 29 PG (25-34); MEAN CORPUSCULAR HGB CONC 33 G/DL (32-36); MEAN CORPUSCULAR VOLUME 87 FL (80-99); MEAN PLATELET VOLUME 10.3 FL (7.4-10.4); MONOCYTES % (AUTO) 9 % (0-12); NEUTROPHILS # (AUTO) 7.6 X 10^3 (1.8-7.8); NEUTROPHILS % (AUTO) 69 % (42-75); PLATELET COUNT 257 10^3/uL (130-400); RED CELL DISTRIBUTION WIDTH 14.3 % (10.0-14.5); WHITE BLOOD COUNT 10.9 10^3/uL (4.3-11.0)
[2019-08-19 02:21] LABS: CHLORIDE 107 MMOL/L (98-107); SODIUM 139 MMOL/L (135-145)
[2019-08-19 02:22] LABS: AMYLASE 33 U/L (25-125); CALCIUM 9.6 MG/DL (8.5-10.1)
[2019-08-19 02:23] LABS: GLUCOSE 121 MG/DL (70-105)
[2019-08-19 02:24] LABS: TOTAL PROTEIN 7.4 GM/DL (6.4-8.2)
[2019-08-19 02:25] LABS: CARBON DIOXIDE 21 MMOL/L (21-32)
[2019-08-19 02:26] LABS: BILIRUBIN,TOTAL 0.5 MG/DL (0.1-1.0)
[2019-08-19 02:27] LABS: ALKALINE PHOSPHATASE 111 U/L (40-136); CREATININE SERUM 0.69 MG/DL (0.60-1.30); GFR ESTIMATED > 60
[2019-08-19 02:28] LABS: BUN/CREATININE RATIO 20
[2019-08-19 02:30] LABS: ALANINE AMINOTRANSFERASE 24 U/L (0-55)
[2019-08-19] MEDS ORDERED: cefTRIAXone FOR IV USE 1,000 MG in WATER (STERILE) FOR INJECTION 10 ML IV ONE (02:30)
[2019-08-19 02:31] LABS: LIPASE 29 U/L (8-78)
[2019-08-19] MEDS ORDERED: ONDA4TAB11 PO (03:16)
[2019-08-19] MEDS ORDERED: KETO10TA PO (03:16)
[2019-08-19] MEDS ORDERED: CEFD300C3 PO (03:16)
[2019-08-19 03:24] VITALS: BP 145/91
--- NOTE | 2019-08-19 05:22 | Diagnostic Imaging Report ---
EXAMINATION: AP supine and upright views of the abdomen INDICATION: Flank pain. Recent treatment for UTI. Patient with history of kidney stones. COMPARISON: Multiple priors, most recent performed on 06/13/[address] abdomen and pelvis also performed today. FINDINGS: There is a nonobstructive bowel gas pattern. Gas and stool is noted throughout the colon, with mild retained stool noted throughout. There is a 4 mm calcification in the region of the right lower pole of the right kidney which corresponds to a nonobstructing calculus seen on CT scan. Calcified granulomas are demonstrated in the spleen. There is no evidence of pneumoperitoneum. Surgical clips are demonstrated in the right upper quadrant. The visualized lung bases are clear. No acute osseous abnormality is identified. IMPRESSION: Nonobstructive bowel gas pattern. No radiographic evidence of acute abdominal process. Calculus in the lower pole of the right kidney corresponds to a nonobstructing stone seen on CT scan. Dictated by: Dictated on workstation # [id number]
--- NOTE | 2019-08-19 07:31 | Diagnostic Imaging Report ---
PROCEDURE: CT urinary tract, rule out kidney stone. TECHNIQUE: Multiple contiguous axial images were obtained through the abdomen and pelvis without the use of intravenous contrast. Auto Exposure Controls were utilized during the CT exam to meet ALARA standards for radiation dose reduction. INDICATION: Flank pain. History of kidney stones. COMPARISON: 09/13/2016 FINDINGS: Included portions of the lung bases are clear. CT ABDOMEN: Punctate nonobstructive right renal calculus is identified. No renal calculi are seen on the left. No ureteral calculi are seen on either side. Additionally, there is no hydronephrosis or other evidence of obstruction on either side. There does appear to be perhaps mildly complex right renal cyst. This is suboptimally characterized on this noncontrast exam. Note is also made of mixed macroscopic fatty and soft tissue density lesion extending exophytically from the mid region of the left kidney. It measures 4 x 3.4 cm and is consistent with benign angiomyolipoma. The adrenal glands, spleen, pancreas, and liver have an unremarkable noncontrast CT appearance. There is no loculated fluid collection, free fluid, no free air within the abdomen. No abnormal mesenteric or retroperitoneal adenopathy is seen. Small bowel loops are nondistended. Normal appendix is identified. Multiple fat-containing periumbilical hernia are identified. [place] measure approximately 2.2 cm in diameter. Osseous structures show no acute abnormalities. CT PELVIS: The urinary bladder is unopacified. No calculi are seen within the urinary bladder. There is no loculated fluid collection, free fluid or free air within the pelvis. No abnormal lymph nodes are seen. Osseous structures show no acute abnormalities. IMPRESSION: 1. No ureteral calculi, hydronephrosis, nor evidence of obstruction on either side. 2. Nonobstructive right renal calculus. 3. Findings consistent with benign left angiomyolipoma. Although benign, size of the angiomyolipoma at 4 cm suggests significant increased risk of spontaneous rupture. Lesion may be amenable to catheter guided prophylactic embolization. This is recommended. 4. Probable complex, yet incompletely evaluated right renal cyst. Followup is advised. Dictated by: Dictated on workstation # [id number]
== END 2019-08-19 03:23 | disposition home or self-care (01) ==
LOC: EDUNIT# 01:22 → ER 01:26
DX: N39.0 Urinary tract infection, site not specified (principal); I10 Essential (primary) hypertension; N20.0 Calculus of kidney
CPT/HCPCS: 36415; 74019; 74176; 80053; 81000; 82150; 83690; 84703; 85025; 87088; 96361; 96374; 96375

== ENCOUNTER → 2019-09-01 | Outpatient (CLI) | payer BC ==
[~2019-09-01] MED LIST changes: +CEFD300C3 PO; +KETO10TA PO; +ONDA4TAB11 PO
--- NOTE | 2019-09-01 11:13 | Diagnostic Imaging Report ---
PROCEDURE: US Renal Bilateral. TECHNIQUE: Multiple real-time grayscale images were obtained over the kidneys in various projections bilaterally. INDICATION: Angiomyolipoma noted on CT. Correlation is made with CT study from 08/19/2019. Right kidney measures 11.0 x 6.1 x 7.0 cm and the left kidney measures 11.4 x 5.3 x 5.9 cm. There is a cyst with calcification in midportion of the right kidney measuring 2.6 x 1.9 x 2.8 cm. Hyperechoic mass in the left kidney is noted measuring 3.7 x 3.8 x 3.2 cm. This is consistent with an angiomyolipoma. No calculi or hydronephrosis is seen. Bilateral ureteral jets were visualized in the bladder. IMPRESSION: 1. Slightly complex and partially calcified right renal cyst. 2. Fat containing mass left kidney consistent with angiomyolipoma. Dictated by: Dictated on workstation # [id number]
== END ==
LOC: RAD 08:29
PROVIDERS: ATTEND Family Medicine
DX: D17.71 Benign lipomatous neoplasm of kidney (principal); N28.1 Cyst of kidney, acquired; N28.89 Other specified disorders of kidney and ureter
CPT/HCPCS: 76770

== ENCOUNTER 2021-04-16 18:29 | Emergency (ER) | payer BC ==
[~2021-04-16] VITALS: Ht 167.7 cm; Wt 117.9 kg
[~2021-04-16 18:29] MED LIST changes: -OMEP40CA27 PO; +OMEP40CA6 PO
[2021-04-16 19:20] VITALS: BP 167/90
--- NOTE | 2021-04-16 19:44 | ED Abdominal Pain ---
General Chief Complaint: Abdominal/GI Problems Stated Complaint: BACK PAIN Nursing Triage Note: Pt arrives via POV from home for c/o sudden onset right sided flank pain; starting at 1800 tonight. 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 Pt denies changes in bowel/bladder. Source of Information: Patient Exam Limitations: No Limitations History of Present Illness Date Seen by Provider: Apr 16, 2021 Time Seen by Provider: 18:32 Initial Comments This 51-year-old woman presents to the emergency room with sudden onset of right sided flank pain starting about 1800. She has had a prior kidney stone requiring lithotripsy but states this feels worse than she remembers her kidney stone. She is distraught and has difficulty describing her symptoms and elaborating on her pain during exam. She has a vague sensation of nausea and a vague sensation of tenderness to palpation on the right side of her abdomen. Pain does not change with movement or position. She reports being postmenopausal. Allergies and Home Medications Allergies Coded Allergies: No Known Drug Allergies (Unverified , 06/19/11) Patient Home Medication List Home Medication List Reviewed: Yes Cefdinir (Cefdinir) 300 Mg Capsule, 300 MG PO BID Prescribed by: CHARLIE JOHNS on 08/19/19315 Cephalexin (Cephalexin) 500 Mg Tablet, 500 MG PO TID Prescribed by: HILL BLACKWELL on 04/16/212211 Ketorolac Tromethamine (Ketorolac Tromethamine) 10 Mg Tablet, 10 MG PO Q6H Prescribed by: CHARLIE JOHNS on 08/19/19315 Omeprazole (Omeprazole) 40 Mg Capsule.dr, 40 MG PO HS Prescribed by: NAEEM ESCOBAR on 09/13/161817 Ondansetron (Zofran Odt) 4 Mg Tab.rapdis, 4 MG PO Q6H PRN for NAUSEA/VOMITING- 1ST LINE Prescribed by: NAEEM ESCOBAR on 09/13/161817 Ondansetron (Ondansetron Odt) 4 Mg Tab.rapdis, 4 MG PO Q4H Prescribed by: CHARLIE JOHNS on 08/19/19315 Ondansetron (Ondansetron Odt) 4 Mg Tab.rapdis, 4 MG SL Q4H PRN for NAUSEA/VOM ITING Prescribed by: HILL BLACKWELL on 04/16/212211 Oxycodone HCl/Acetaminophen (Percocet 5-325 mg Tablet) 1 Each Tablet, 1 TAB PO Q4H PRN for PAIN-MODERATE (5-7) Prescribed by: HILL BLACKWELL on 04/16/212211 Tamsulosin HCl (Flomax) 0.4 Mg Cap, 0.4 MG PO DAILY Prescribed by: HILL BLACKWELL on 04/16/212211 Triamterene/Hydrochlorothiazid (Triamterene-Hctz 37.5-25 mg Tb) 1 Each Tablet, (Reported) Entered as Reported by: IRINEO RIVERA on 09/13/16 1549 Review of Systems Review of Systems Constitutional: no symptoms reported EENTM: No Symptoms Reported Respiratory: No Symptoms Reported Cardiovascular: No Symptoms Reported Gastrointestinal: See HPI Genitourinary: See HPI Musculoskeletal: no symptoms reported Skin: no symptoms reported Psychiatric/Neurological: No Symptoms Reported Endocrine: No Symptoms Reported Hematologic/Lymphatic: No Symptoms Reported Past Wcsrvjo-Luoniz-Kxuoaz Hx Patient Social History Tobacco Use?: No Use of E-Cig and/or Vaping dev: No Substance use?: No Alcohol Use?: Yes Alcohol Frequency: Once in a while Pt feels they are or have been: No Immunizations Up To Date Influenza Vaccine Up-to-Date: No; Not Current COVID19 Vaccine Pals Nurse: Home [facility] Past Medical History Surgeries: Yes ( X 1;LITHOTRIPSY X 1;R KNEE SCOPE/MENISCUS TEAR) Section, Gallbladder, Orthopedic, Renal Respiratory: No Cardiac: Yes Hypertension Neurological: No : No Reproductive Disorders: No (Postmenopausal) 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 oz. 120.200187an; 41.00 BMI Method:Stated General Appearance: WD/WN, moderate distress HEENT: PERRL/EOMI, normal ENT inspection Neck: normal inspection Respiratory: lungs clear, normal breath sounds, no respiratory distress, no accessory muscle use Cardiovascular: regular rate, rhythm, no edema, no murmur Gastrointestinal: normal bowel sounds, soft, tenderness (Vague in the right abdomen) Extremities: normal inspection, no pedal edema Neurologic/Psychiatric: weblogic developer II-XII nml as tested, no motor/sensory deficits, alert, normal mood/affect, oriented x 3 Skin: normal color, warm/dry Progress/Results/Core Measures Results/Orders Lab Results Laboratory Tests Test 04/16/21 20:00 04/16/21 20:35 Range/Units White Blood Count 10.6 4.3-11.0 10^3/uL Red Blood Count 4.65 3.80-5.11 10^6/uL Hemoglobin 13.3 11.5-16.0 g/dL Hematocrit 40 35-52 % Mean Corpuscular Volume 87 80-99 fL Mean Corpuscular Hemoglobin 29 25-34 pg Mean Corpuscular Hemoglobin Concent 33 32-36 g/dL Red Cell Distribution Width 13.3 10.0-14.5 % Platelet Count 313 130-400 10^3/uL Mean Platelet Volume 9.7 9.0-12.2 fL Immature Granulocyte % (Auto) 1 % Neutrophils (%) (Auto) 68 42-75 % Lymphocytes (%) (Auto) 23 12-44 % Monocytes (%) (Auto) 6 0-12 % Eosinophils (%) (Auto) 2 0-10 % Basophils (%) (Auto) 1 0-10 % Neutrophils # (Auto) 7.1 1.8-7.8 10^3/uL Lymphocytes # (Auto) 2.4 1.0-4.0 10^3/uL Monocytes # (Auto) 0.7 0.0-1.0 10^3/uL Eosinophils # (Auto) 0.2 0.0-0.3 10^3/uL Basophils # (Auto) 0.1 0.0-0.1 10^3/uL Immature Granulocyte # (Auto) 0.1 0.0-0.1 10^3/uL Sodium Level 139 135-145 MMOL/L Potassium Level 3.8 3.6-5.0 MMOL/L Chloride Level 105 98-107 MMOL/L Carbon Dioxide Level 23 21-32 MMOL/L Anion Gap 11 5-14 MMOL/L Blood Urea Nitrogen 15 7-18 MG/DL Creatinine 0.74 0.60-1.30 MG/DL Estimat Glomerular Filtration Rate 97 BUN/Creatinine Ratio 20 Glucose Level 153 H 70-105 MG/DL Calcium Level 9.6 8.5-10.1 MG/DL Corrected Calcium 9.5 8.5-10.1 MG/DL Total Bilirubin 0.4 0.1-1.0 MG/DL Aspartate Amino Transf (AST/SGOT) 17 5-34 U/L Alanine Aminotransferase (ALT/SGPT) 20 0-55 U/L Alkaline Phosphatase 95 40-136 U/L C-Reactive Protein High Sensitivity 2.86 H 0.00-0.50 MG/DL Total Protein 7.9 6.4-8.2 GM/DL Albumin 4.1 3.2-4.5 GM/DL Serum Test, Qualitative NEGATIVE NEGATIVE Urine Color DARK YELLOW Urine Clarity CLEAR Urine pH 5.5 5-9 Urine Specific [place] >=1.030 1.016-1.022 Urine Protein 1+ H NEGATIVE Urine Glucose (UA) NEGATIVE NEGATIVE Urine Ketones NEGATIVE NEGATIVE Urine Nitrite NEGATIVE NEGATIVE Urine Bilirubin NEGATIVE NEGATIVE Urine Urobilinogen 0.2 < = 1.0 MG/DL Urine Leukocyte Esterase TRACE H NEGATIVE Urine RBC (Auto) 2+ H NEGATIVE Urine RBC 5-10 H /HPF Urine WBC 2-5 /HPF Urine Squamous Epithelial Cells 5-10 /HPF Urine Crystals NONE /LPF Urine Bacteria LARGE H /HPF Urine Casts NONE /LPF Urine Mucus SMALL H /LPF Urine Culture Indicated YES My Orders Orders - HILL EMANUEL MD Ua Culture If Indicated (04/16/21 18:32) Cbc With Automated Diff (04/16/21 19:39) Comprehensive Metabolic Panel (04/16/21 19:39) Hs C Reactive Protein (04/16/21 19:39) Hcg,Qualitative Serum (04/16/21 19:39) Ed Iv/Invasive Line Start (04/16/21 19:39) Lactated Ringers (Lr 1000 Ml Iv Solution (04/16/21 19:45) Ketorolac Injection (Toradol Injection) (04/16/21 19:45) Ondansetron Injection (Zofran Injectio (04/16/21 19:45) Urine Culture (04/16/21 20:35) Lactated Ringers (Lr 1000 Ml Iv Solution (04/16/21 21:15) Ct Abd/Pelvis Wo(Kidney Stone) (04/16/21 21:08) Fentanyl Inj (Sublimaze Injection) (04/16/21 21:15) Abdomen/Kub 1view (04/16/21 22:00) Rx-Oxycodone/Apap 5-325 Mg (Rx-Percocet (04/16/21 22:15) Rx-Ondansetron Po (Rx-Zofran Po) (04/16/21 22:03) Cephalexin Capsule (Keflex Capsule) (04/16/21 22:15) Medications Given in ED Current Medications Medications Dose Ordered Sig/Alaina Route Start Time Stop Time Status Last Admin Dose Admin Fentanyl Citrate 50 mcg ONCE ONCE IVP 04/16/21 21:15 04/16/21 21:16 DC 04/16/21 21:15 50 MCG Ketorolac Tromethamine 30 mg ONCE ONCE IVP 04/16/21 19:45 04/16/21 19:46 DC 04/16/21 20:05 30 MG Lactated Ringer's 1,000 ml @ 0 mls/hr Q0M ONCE IV 04/16/21 19:45 04/16/21 19:46 DC 04/16/21 20:05 1,000 MLS/HR Lactated Ringer's 1,000 ml @ 0 mls/hr Q0M ONCE IV 04/16/21 21:15 04/16/21 21:16 DC 04/16/21 21:15 1,000 MLS/HR Ondansetron HCl 8 mg ONCE ONCE IVP 04/16/21 19:45 04/16/21 19:46 DC 04/16/21 20:05 8 MG Vital Signs/I&O 04/16/21 19:20 Temp 36.7 Pulse 82 Resp 18 B/P (MAP) 167/90 (115) Pulse Ox 97 O2 Delivery Room Air Blood Pressure Mean: 115 Progress Progress Note : Time: 19:44 Progress Note History and nature of her symptoms suggest ureteral stone. Patient was unable to urinate. We will treat her with Zofran, Toradol, and IV fluids. Determination for remainder of work-up will be pending her lab evaluation. Diagnostic Imaging Diagonstic Imaging: CT Plain Films/CT/US/NM/MRI: abdomen, pelvis Comments CT abdomen and pelvis viewed by me and report reviewed. See report below: NAME: GLORIA B[facility]DA [facility] REC#: [id number] PT STATUS: REG ER : 1970 PHYSICIAN: HILL EMANUEL MD ADMIT DATE: 04/16/21/ER Draft Date of Exam:04/16/21 CT ABD/PELVIS WO(KIDNEY STONE) TECHNIQUE: Unenhanced CT imaging of the abdomen and pelvis was performed. 2-D reformats are created and submitted for interpretation. Automatic exposure controls were utilized to optimize patient dose. INDICATION: Sudden onset right flank pain COMPARISON: 08/19/2019 FINDINGS: Evaluation of the abdominal viscera is mildly limited without contrast. Lower chest: The lung bases are clear. No pericardial or pleural effusion. Peritoneum: No free intraperitoneal air or fluid. Liver and biliary system: Unenhanced liver is normal. Cholecystectomy. No biliary duct dilatation. Spleen and Pancreas: Numerous calcified splenic granulomas are unchanged. No acute abnormality of the spleen. Unenhanced pancreas is grossly normal. Adrenals: Normal. tract: Mild right hydronephrosis has developed due to a 6 mm obstructing stone just below the UPJ. Left renal mass containing soft tissue and fat is stable measuring 3.5 x 3.9 cm. Mildly complicated right renal cyst is stable. Urinary bladder is decompressed. The uterus and ovaries are unremarkable. GI tract: Stomach is partially filled with fluid and there is no wall thickening. No bowel obstruction. No pericolonic inflammatory changes. Sigmoid colon diverticulosis without diverticulitis. Normal appendix. Vasculature and Lymph nodes: Normal caliber aorta. No abdominal or pelvic lymphadenopathy. Musculoskeletal: No concerning osseous lesion. Fat-containing umbilical hernia is unchanged. IMPRESSION: 1. Mild right hydronephrosis due to a 6 mm stone at the right UPJ. 2. 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 Dictated on workstation # [id number] Dict: 04/16/212136 Trans: 04/16/212142 [id number] [id number] Interpreted by: LARISA BAIRD MD Departure Impression Primary Impression: Right ureteral stone Disposition: HOME, SELF-CARE Condition: Improved Departure-Patient Inst. Decision time for Depature: 22:08 Referrals: HELENE ARELLANO DO (PCP/Family) Primary Care Physician Patient Instructions: Kidney Stones in Adults Add. Discharge Instructions: You have a 6 mm kidney stone lodged in your right ureter not far from the kidney. You should seek prompt follow-up with a urologist such as Dr. Jackson as this larger kidney stone may not pass on its own. Use Percocet as prescribed 1 tablet every 4 hours as needed for pain and Zofran every 4 hours dissolved under the tongue as needed for nausea and vomiting. Drink plenty of clear liquids. Strain your urine and bring any stones collected to your follow-up appointment. Call Dr. Kaufman and your primary care provider first thing in the morning to make follow-up arrangements. Call with questions or concerns, and return to the ER if you have worsening symptoms despite following these instructions. All discharge instructions reviewed with patient and/or family. Voiced understanding. Scripts Ondansetron (Ondansetron Odt) 4 Mg Tab.rapdis 4 MG SL Q4H PRN for NAUSEA/VOMITING, #10 TAB Prov: HILL EMANUEL MD 04/16/21 Cephalexin (Cephalexin) 500 Mg Tablet 500 MG PO TID, #20 TAB Prov: HILL EMANUEL MD 04/16/21 Oxycodone HCl/Acetaminophen (Percocet 5-325 mg Tablet) 1 Each Tablet 1 TAB PO Q4H PRN for PAIN-MODERATE (5-7) MDD 6 TABS, #20 TAB Prov: HILL EMANUEL MD 04/16/21 Tamsulosin HCl (Flomax) 0.4 Mg Cap 0.4 MG PO DAILY, #30 CAP Prov: HILL EMANUEL MD 04/16/21 Copy Copies To 1: BRITTANY JACKSON MD Copies To 2: HELENE ARELLANO JOSHUA T MD Apr 16, 2021 19:44
[2021-04-16] MEDS ORDERED: LACTATED RINGERS 1,000 ML IV ONE ×2 (19:45→21:15)
[2021-04-16] MEDS ORDERED: KETOROLAC 30 MG/ML VIAL IVP ONE (19:45)
[2021-04-16] MEDS ORDERED: ONDANSETRON 4 MG/2 ML (SDV) Z0FRAN IVP ONE (19:45)
[2021-04-16 20:11] LABS: BASOPHILS # (AUTO) 0.1 10^3/uL (0.0-0.1); BASOPHILS % (AUTO) 1 % (0-10); EOSINOPHILS # (AUTO) 0.2 10^3/uL (0.0-0.3); EOSINOPHILS % (AUTO) 2 % (0-10); HEMATOCRIT 40 % (35-52); HEMOGLOBIN 13.3 g/dL (11.5-16.0); LYMPHOCYTES # (AUTO) 2.4 10^3/uL (1.0-4.0); LYMPHOCYTES % (AUTO) 23 % (12-44); MEAN CORPUSCULAR HEMOGLOBIN 29 pg (25-34); MEAN CORPUSCULAR HGB CONC 33 g/dL (32-36); MEAN CORPUSCULAR VOLUME 87 fL (80-99); MEAN PLATELET VOLUME 9.7 fL (9.0-12.2); MONOCYTES # (AUTO) 0.7 10^3/uL (0.0-1.0); MONOCYTES % (AUTO) 6 % (0-12); NEUTROPHILS # (AUTO) 7.1 10^3/uL (1.8-7.8); NEUTROPHILS % (AUTO) 68 % (42-75); PLATELET COUNT 313 10^3/uL (130-400); WHITE BLOOD COUNT 10.6 10^3/uL (4.3-11.0)
[2021-04-16 20:36] LABS: ALBUMIN 4.1 GM/DL (3.2-4.5); BILIRUBIN,TOTAL 0.4 MG/DL (0.1-1.0); CALCIUM 9.6 MG/DL (8.5-10.1); CREATININE SERUM 0.74 MG/DL (0.60-1.30); POTASSIUM 3.8 MMOL/L (3.6-5.0); TOTAL PROTEIN 7.9 GM/DL (6.4-8.2)
[2021-04-16 20:41] LABS: BILIRUBIN,URINE NEGATIVE (NEGATIVE); CLARITY,URINE CLEAR; COLOR,URINE DARK YELLOW; GLUCOSE, URINE (UA) NEGATIVE (NEGATIVE); KETONES,URINE NEGATIVE (NEGATIVE); LEUKOCYTE ESTERASE ,URINE TRACE (NEGATIVE); NITRITE,URINE NEGATIVE (NEGATIVE); PH,URINE 5.5 (5-9); PROTEIN,URINE 1+ (NEGATIVE)
[2021-04-16 21:02] LABS: BACTERIA,URINE LARGE /HPF
[2021-04-16] MEDS ORDERED: fentaNYL INJ 100 MCG/2 ML AMP IVP ONE (21:15)
--- NOTE | 2021-04-16 21:44 | Diagnostic Imaging Report ---
CT ABD/PELVIS WO(KIDNEY STONE) TECHNIQUE: Unenhanced CT imaging of the abdomen and pelvis was performed. 2-D reformats are created and submitted for interpretation. Automatic exposure controls were utilized to optimize patient dose. INDICATION: Sudden onset right flank pain COMPARISON: 08/19/2019 FINDINGS: Evaluation of the abdominal viscera is mildly limited without contrast. Lower chest: The lung bases are clear. No pericardial or pleural effusion. Peritoneum: No free intraperitoneal air or fluid. Liver and biliary system: Unenhanced liver is normal. Cholecystectomy. No biliary duct dilatation. Spleen and Pancreas: Numerous calcified splenic granulomas are unchanged. No acute abnormality of the spleen. Unenhanced pancreas is grossly normal. Adrenals: Normal. tract: Mild right hydronephrosis has developed due to a 6 mm obstructing stone just below the UPJ. Left renal mass containing soft tissue and fat is stable measuring 3.5 x 3.9 cm. Mildly complicated right renal cyst is stable. Urinary bladder is decompressed. The uterus and ovaries are unremarkable. GI tract: Stomach is partially filled with fluid and there is no wall thickening. No bowel obstruction. No pericolonic inflammatory changes. Sigmoid colon diverticulosis without diverticulitis. Normal appendix. Vasculature and Lymph nodes: Normal caliber aorta. No abdominal or pelvic lymphadenopathy. Musculoskeletal: No concerning osseous lesion. Fat-containing umbilical hernia is unchanged. IMPRESSION: 1. Mild right hydronephrosis due to a 6 mm stone at the right UPJ. 2. 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 Dictated by: Dictated on workstation # [id number]
[2021-04-16] MEDS ORDERED: RX-ONDANSETRON 4 MG ODT (ZOFRAN) PPK #4 SL STA (22:03)
[2021-04-16] MEDS ORDERED: CEPH500T PO (22:12)
[2021-04-16] MEDS ORDERED: OXYC1TAB87 PO (22:12)
[2021-04-16] MEDS ORDERED: ONDA4TAB11 SL (22:12)
[2021-04-16] MEDS ORDERED: TMSL.4C PO (22:12)
[2021-04-16] MEDS ORDERED: CEPHALEXIN 250 MG (KEFLEX) CAP PO ONE (22:15)
[2021-04-16] MEDS ORDERED: RX-OXYCODONE/APAP 5-325 MG #4 TAB PK PO PRN (22:15)
--- NOTE | 2021-04-16 22:54 | Diagnostic Imaging Report ---
ABDOMEN/KUB 1VIEW INDICATION: Abdominal pain COMPARISON: CT abdomen and pelvis performed earlier same day TECHNIQUE: AP view of the abdomen FINDINGS: Cholecystectomy clips are present. Phlebolith is present in the right hemipelvis. The patient's proximal right ureteral stone is not radiographically apparent. Calcified splenic granulomas. Nonobstructive bowel gas pattern. IMPRESSION: The proximal right ureteral stone seen on CT is not radiographically apparent. Dictated by: Dictated on workstation # [id number]
== END 2021-04-16 22:45 | disposition home or self-care (01) ==
LOC: EDUNIT# 18:29 → ER 18:30
DX: N13.2 Hydronephrosis with renal and ureteral calculous obstruction (principal)
CPT/HCPCS: 36415; 74018; 74176; 80053; 81000; 84703; 85025; 86141; 87088

== ENCOUNTER → 2021-04-18 | Outpatient (CLI) | payer BC ==
[~2021-04-18] MED LIST changes: +AMLO-250 PO; +CEPH500T PO; +ONDA4TAB11 SL; +OXYC1TAB87 PO; +TMSL.4C PO
--- NOTE | 2021-04-18 15:14 | Diagnostic Imaging Report ---
INDICATION: Right-sided pain. TIME OF EXAM: 2:47 p.m. Comparison is made with prior radiograph from 04/16/2021. FINDINGS: There is a calcific density overlying the right transverse process of L4 measuring 4-5 mm in size. This likely represents the calculus noted on recent CT, which was located more proximally in the right ureter. No other radiopaque urinary tract calculi are seen. There is a phlebolith in the right pelvis. IMPRESSION: Right ureteral calculus located at the level of L4. Dictated by: Dictated on workstation # [id number]
== END ==
LOC: RAD 14:28
PROVIDERS: ATTEND Urology
DX: N20.1 Calculus of ureter (principal)
CPT/HCPCS: 74018

== ENCOUNTER 2021-04-19 05:35 | Outpatient (CLI) | payer BC ==
[~2021-04-19] VITALS: Ht 167.7 cm; Wt 118.2 kg
[~2021-04-19 05:35] MED LIST changes: -AMLO-250 PO
[2021-04-19] MEDS ORDERED: AMLO-250 PO (12:14)
== END 2021-04-19 12:24 | disposition home or self-care (01) ==
LOC: PREOP 05:35
PROVIDERS: ATTEND Urology
DX: Z01.818 Encounter for other preprocedural examination (principal)

== ENCOUNTER 2021-04-23 06:49 | Day surgery (SDC) | payer BC ==
[~2021-04-23] VITALS: Ht 167.7 cm; Wt 118.2 kg
[2021-04-23] VITALS (11 sets, daily range): BP systolic 112–180; BP diastolic 62–95
[~2021-04-23 06:49] MED LIST changes: +AMLO-250 PO
--- NOTE | 2021-04-23 07:10 | Progress Note-Pre Operative ---
Pre-Operative Progress Note H&P Reviewed The H&P was reviewed, patient examined and no changes noted. Date Seen by Provider: Apr 23, 2021 Time Seen by Provider: 07:09 Date H&P Reviewed: Apr 23, 2021 Time H&P Reviewed: 07:09 Pre-Operative Diagnosis: RT PROXIMAL URETERAL STONE BRITTANY JACKSON MD Apr 23, 2021 07:10
--- NOTE | 2021-04-23 07:21 | Progress Note-Post Operative ---
Post-Operative Progess Note Surgeon (s)/Plate Glass Installer (s) Surgeon BRITTANY JACKSON MD Plate Glass Installer: NONE Pre-Operative Diagnosis RT DISTAL URETERAL STONE Post-Operative Diagnosis SAME Procedure & Operative Findings Date of Procedure 04/23/21 Procedure Performed/Findings RT URETEROSCOPY WITH STONE BASKET Anesthesia Type GENERAL Estimated Blood Loss Estimated blood loss (mL): NONE Specimens/Packing Specimens Removed RT URETERAL STONE Packing: NONE BRITTANY JACKSON MD Apr 23, 2021 07:21
--- NOTE | 2021-04-23 07:22 | Diagnostic Imaging Report ---
ABDOMEN/KUB 1VIEW INDICATION: Lithotripsy of right ureteral stone COMPARISON: 04/18/2021 TECHNIQUE: AP view of the abdomen FINDINGS: The mid right ureteral stone appears to have passed into the pelvis and may be at the UVJ or within the urinary bladder. Right-sided pelvic phleboliths unchanged. No ureteral stones are appreciated. Cholecystectomy. IMPRESSION: The right ureteral stone has passed into the pelvis and may be at the UVJ or within the urinary bladder. Dictated by: Dictated on workstation # [id number]
--- NOTE | 2021-04-23 07:22 | Discharge Inst-Urology ---
Discharge Inst-Urology Reconcile Patient Problems Problems Reviewed?: Yes Final Diagnosis RT DISTAL URETERAL STONE Patient Instructions/Follow Up Plan/Assessment/Instructions Please make appointment to been seen in office in 3 weeks. Increase oral fluids for 48 hours and then as needed. Diet and Activity as tolerated. If questions or concerns contact your physician Or seek help at emergency department. BRITTANY JACKSON MD Apr 23, 2021 07:22
[2021-04-23] MEDS: LACTATED RINGERS 1,000 ML IV PRN ×2 (08:10→10:56)
[2021-04-23] MEDS ORDERED: cefTRIAXone 1 GM PRE-MIX 50 ML IV ONE ×2 (08:15→08:17)
[2021-04-23] MEDS ORDERED: fentaNYL INJ 100 MCG/2 ML AMP ONE (10:01)
[2021-04-23] MEDS ORDERED: MIDAZOLAM 2 MG/2 ML (VERSED) VIAL ONE (10:01)
[2021-04-23] MEDS ORDERED: proPOfol 200 MG/20 ML (DIPRIVAN) VIAL IV ONE (10:31)
[2021-04-23] MEDS ORDERED: ONDANSETRON 4 MG/2 ML (SDV) Z0FRAN ONE (10:31)
[2021-04-23] MEDS ORDERED: LIDOCAINE PF 2% 5 ML (XYLOCAINE) VIAL ONE (10:31)
[2021-04-23] MEDS ORDERED: KETOROLAC 30 MG/ML VIAL ONE (10:39)
[2021-04-23] MEDS ORDERED: FUROSEMIDE 40 MG/4 ML INJ (LASIX) ONE (10:39)
[2021-04-23] MEDS ORDERED: SEVOFLURANE (ULTANE) 15 ML INHAL SOLN ONE (10:42)
[2021-04-23] MEDS ORDERED: LACTATED RINGERS 1,000 ML IV ONE (10:53)
[2021-04-23] MEDS ORDERED: HYDROmorphone 2 MG/ML VIAL (DILAUDID) IV ONE (11:00)
[2021-04-23] MEDS ORDERED: ONDANSETRON 4 MG/2 ML (SDV) Z0FRAN IVP PRN (11:00)
[2021-04-23] MEDS ORDERED: PHEN-640 PO (11:50)
[2021-04-23] MEDS ORDERED: NITR-65 PO (11:50)
[2021-04-23] MEDS ORDERED: KETO10TA PO (11:50)
--- NOTE | 2021-04-23 13:55 | Anesthesia-General Post-Op ---
General Patient Condition Mental Status/LOC: Same as Preop Cardiovascular: Satisfactory Nausea/Vomiting: Absent Respiratory: Satisfactory Pain: Controlled Complications: Absent Post Op Complications Complications None Follow Up Care/Instructions Patient Instructions None needed. Anesthesia/Patient Condition Patient Condition Patient is doing well, no complaints, stable vital signs, no apparent adverse anesthesia problems. No complications reported per nursing. D/C home per [facility] [place] Criteria: Yes KATIE VILLA CRNA Apr 23, 2021 13:55
--- NOTE | 2021-04-23 16:49 | OPERATIVE REPORT ---
DATE OF SERVICE: 04/23/2021 PREOPERATIVE DIAGNOSIS: Right distal ureteral stone. POSTOPERATIVE DIAGNOSIS: Right distal ureteral stone. OPERATION PERFORMED: Right ureteroscopy with stone basket. SURGEON: Faisal Jackson MD ANESTHESIA: General. COMPLICATIONS: None. DESCRIPTION OF PROCEDURE: Under satisfactory general anesthesia, the patient in lithotomy position, genitalia were prepped and draped in the usual sterile fashion. Cystoscope was introduced under vision. There was noted the vaginal prolapse. Cystoscopy was normal except for a swollen, edematous right ureteral intramural portion. Using the foroblique lens, I dilated the right ureteral orifice intramural portion to accommodate a 6.9 [place] semi-rigid ureteroscope, visualized the stone that was floating, so I elected to basket it. I passed a 3-[place] Adams basket, engaged the stone under vision and extracted it completely. I went back with ureteroscope to the proximal ureter up and down to confirm the integrity of the ureter and no harm done and no further fragments or stones. I removed the ureteroscope, emptied the bladder with cystoscope. The patient tolerated the procedure and anesthesia well and was sent to recovery room in stable condition. Job ID: [id number] DocumentID: [id number] Dictated Date: 04/23/2021 10:50:17 Sales And Merchandising Associate Date: 04/23/2021 16:49:19 Dictated By: FAISAL JACKSON MD
== END 2021-04-23 12:35 | disposition home or self-care (01) ==
LOC: SDC 06:49
PROVIDERS: ATTEND Urology
DX: N20.1 Calculus of ureter (principal); N81.10 Cystocele, unspecified; I10 Essential (primary) hypertension; E66.9 Obesity, unspecified; Z68.41 Body mass index [BMI] 40.0-44.9, adult; Z79.899 Other long term (current) drug therapy
CPT/HCPCS: 74018; 76000; 87081

== ENCOUNTER → 2022-06-11 | Outpatient (CLI) | payer BC ==
[~2022-06-11] MED LIST changes: +NITR-65 PO; +PHEN-640 PO
== END ==
LOC: LAB 10:18
PROVIDERS: ATTEND Family Medicine
DX: R05.9 Cough, unspecified (principal); R09.89 Other specified symptoms and signs involving the circulatory and respiratory systems
CPT/HCPCS: 87804

== ENCOUNTER → 2022-06-16 | Outpatient (CLI) | payer BC | LOC: LAB 09:41 | PROVIDERS: ATTEND Family Medicine | DX: U07.1 COVID-19 (principal) | CPT/HCPCS: 87635 ==